=== PATIENT | male | born 1985 | race Caucasian/White ===

== ENCOUNTER 2019-07-23 12:51 | Emergency (ER) | payer SELFPAY ==
[2019-07-23 13:08] VITALS: BP 129/81; PULSE 68; TEMP 98.7; BMI 39.0
[2019-07-23] MEDS ORDERED: ACETAMINOPHEN 325 MG TABLET (FP) PO ONE (13:36)
[2019-07-23] MEDS ORDERED: ACETAMINOPHEN 325 MG TABLET (FP) ONE (13:41)
--- NOTE | 2019-07-23 13:42 | PDOC ---
History of Present Illness - General Chief Complaint: Chest Pain Stated Complaint: HEADACHE/CHEST PAIN Time Seen by Provider: 07/23/19 13:15 History Source: Patient Exam Limitations: No Limitations Past History - Past Medical History Allergies/Adverse Reactions: Allergies Allergy/AdvReac Type Severity Reaction Status Date / Time No Known Allergies Allergy Verified 07/23/19 13:09 Home Medications: Ambulatory Orders NK [No Known Home Medication] 07/23/19 COPD: No - Psycho Social/Smoking Cessation Hx Smoking History: Never smoked Hx Alcohol Use: No Drug/Substance Use Hx: No *Physical Exam - Vital Signs Last Vital Signs Temp Pulse Resp BP Pulse Ox 98.7 F 68 19 129/81 100 07/23/19 13:03 07/23/19 13:03 07/23/19 13:03 07/23/19 13:03 07/23/19 13:03 - Physical Exam General Appearance: No: Apparent Distress HEENT: negative: Nasal Congestion, Rhinorrhea Respiratory/Chest: positive: Lungs Clear, Normal Breath Sounds. negative: Respiratory Distress Cardiovascular: positive: Regular Rhythm, Regular Rate, S1, S2. negative: Murmur Gastrointestinal/Abdominal: positive: Normal Bowel Sounds, Soft. negative: Tender, Distended, Guarding, Rebound Neurologic: positive: cleaner operator II-XII NML intact, Fully Oriented, Alert, Normal Mood/ Affect, Motor Strength 5/5 Heart Score/ECG Review - History History: Slightly suspicious - Electrocardiogram EKG: Non specific repolarization disturbance - Age Age: </= 45 - Risk Factors Risk Factors Heart Score: Yes Hx Hypertension, Yes Hx Diabetes, Yes Hx Obesity Based on the list above the patient has:: >/=3 risk factors or Hx atherosclerotic disease - Troponin Troponin: </= normal limit - Score Heart Score - Total: 3 ED Treatment Course - LABORATORY CBC & Chemistry Diagram: 07/23/19 13:32 07/23/19 13:32 - RADIOLOGY Radiology Studies Ordered: Category Date Time Status CHEST PA & LAT [RAD] Stat Radiology 07/23/19 13:23 Ordered Medical Decision Making - Medical Decision Making 34 y/o M hx of HTN and DM (not on med) presents with R sided MCMILLAN from last night along with pain across chest, which is constant in nature. CP is nonexertional. Denies fever, URI sxs, sob, abd pain, n/v, leg swelling, calf pain, visual/gait changes, numbness/tingling/weakness of extremities. Denies smoking or drug use. States grandmother had PA at age 74 Consider ACS; no risk factors for PE (PERC negative), unlikely PE, aortic dissection EKG: NSR at 67 bpm, TWI lead III, biphasic appearing lead aVF (no prior EKG to review) Plan: labs, CXR 07/23/19 13:37 CXR negative Initial trop negative Patient feeling better HS 3 D/W Dr. Bronson - recommends repeat trop and EKG Will get second set 07/23/19 14:50 Repeat EKG: Sinus sergei at 56 bpm, TWI leads III, aVF Repeat trop pending 07/23/19 15:37 Repeat trop pending Signed out to KRYSTA Huerta 07/23/19 16:03 Discharge - Discharge Information Problems reviewed: Yes Clinical Impression/Diagnosis: Chest pain Qualifiers: Chest pain type: other chest pain Qualified Code(s): R07.89 - Other chest pain - Additional Discharge Information Prescription Drug Monitoring Program (I-STOP) results: I-STOP not reviewed - Follow up/Referral Referrals: ON STAFF,NOT [Primary Care Provider] - 2 Days - Patient Discharge Instructions Patient Printed Discharge Instructions: DI for Chest Pain Additional Instructions: Thank you for choosing [facility]. It was a pleasure taking care of you. Your labs and chest xray were unremarkable Please follow-up with your doctor in 2 days Return to the Emergency Department if your symptoms worsen or persist or have other concerning symptoms. - Post Discharge Activity
[2019-07-23 13:52] LABS: BASO % 0.7 % (0-2.0); EOS % 5.7 % (0-4.5); HEMOGLOBIN 15.3 GM/dL (11.7-16.9); LYMPH % 37.5 % (8-40); MCH 30.2 pg (25.7-33.7); MEAN CELL VOLUME 88.9 fl (80-96); MEAN PLT VOLUME 8.7 fl (7.5-11.1); MONO % 9.7 % (3.8-10.2); NEUT % 46.4 % (42.8-82.8); PLATELET COUNT 274 K/MM3 (134-434); RBC 5.06 M/mm3 (4.00-5.60); RDW 13.2 % (11.9-15.9); WHITE BLOOD COUNT 6.3 K/mm3 (4.0-10.0)
[2019-07-23 14:23] LABS: ALBUMIN 4.1 g/dl (3.4-5.0); ALK PHOS 80 U/L (45-117); ANION GAP 4 MMOL/L (8-16); BILIRUBIN,TOTAL 0.8 mg/dL (0.2-1); BLOOD UREA NITROGEN 11.4 mg/dL (7-18); CALCIUM 9.1 mg/dL (8.5-10.1); CHLORIDE 107 mmol/L (98-107); CO2 27 mmol/L (21-32); CREATININE 0.8 mg/dL (0.55-1.3); GLUCOSE,RANDOM 83 mg/dL (74-106); MAGNESIUM 2.4 mg/dL (1.8-2.4); POTASSIUM 4.7 mmol/L (3.5-5.1); SGOT/AST 41 U/L (15-37); SGPT/ALT 50 U/L (13-61); SODIUM 138 mmol/L (136-145)
--- NOTE | 2019-07-23 16:18 | EKG ---
Test Reason : Blood Pressure : / mmHG Vent. Rate : 067 BPM Atrial Rate : 067 BPM P-R Int : 176 ms QRS Dur : 102 ms QT Int : 364 ms P-R-T Axes : 062 057 -01 degrees QTc Int : 384 ms NORMAL SINUS RHYTHM WITH SINUS ARRHYTHMIA LEFT ATRIAL ENLARGEMENT T WAVE ABNORMALITY, CONSIDER INFERIOR ISCHEMIA ABNORMAL ECG NO PREVIOUS ECGS AVAILABLE Confirmed by MD TORRES MOYSES ([id number]) on 07/23/2019 4:18:00 PM Referred By: Confirmed By:MIKEY TORRES MD
--- NOTE | 2019-07-23 17:12 | PDOC ---
*Physical Exam - Vital Signs Last Vital Signs Temp Pulse Resp BP Pulse Ox 98.7 F 68 19 129/81 100 07/23/19 13:03 07/23/19 13:03 07/23/19 13:03 07/23/19 13:03 07/23/19 13:03 ED Treatment Course - LABORATORY CBC & Chemistry Diagram: 07/23/19 13:32 07/23/19 13:32 - ADDITIONAL ORDERS Additional order review: Laboratory Results 07/23/19 07/23/19 07/23/19 15:38 13:32 13:32 Sodium 138 Potassium 4.7 Chloride 107 Carbon Dioxide 27 Anion Gap 4 L BUN 11.4 Creatinine 0.8 Est GFR (CKD-EPI)AfAm 135.08 Est GFR (CKD-EPI)NonAf 116.55 Random Glucose 83 Calcium 9.1 Magnesium 2.4 Total Bilirubin 0.8 AST 41 H ALT 50 Alkaline Phosphatase 80 Creatine Kinase Cancelled 313 H Creatine Kinase Index 0.4 CK-MB (CK-2) 1.5 Troponin I < 0.02 Cancelled < 0.02 Total Protein 8.0 Albumin 4.1 07/23/19 13:32 RBC 5.06 MCV 88.9 MCHC 34.0 RDW 13.2 MPV 8.7 Neutrophils % 46.4 Lymphocytes % 37.5 Monocytes % 9.7 Eosinophils % 5.7 H Basophils % 0.7 - Medications Given in the ED: ED Medications Discontinued Medications Generic Name Dose Route Start Last Admin Trade Name Freq PRN Reason Stop Dose Admin Acetaminophen 975 mg 07/23/19 13:36 07/23/19 13:46 Tylenol - PO 07/23/19 13:37 975 mg ONCE ONE Administration Medical Decision Making - Medical Decision Making 07/23/19 17:11 Patient was endorsed to me to check repeat troponin and disposal the patient. Patient seen and evaluated he currently has no symptoms he is requesting to be discharged. Troponin is negative I discussed the physical exam findings, ancillary test results and final diagnoses with the patient. I answered all of the patient's questions. The patient was satisfied with the care received and felt comfortable with the discharge plan and treatment plan. The Patient agrees to follow up with the primary care physician within 24-72 hours. Discharge - Discharge Information Problems reviewed: Yes Clinical Impression/Diagnosis: Chest pain Qualifiers: Chest pain type: other chest pain Qualified Code(s): R07.89 - Other chest pain - Follow up/Referral Referrals: ON STAFF,NOT [Primary Care Provider] - 2 Days - Patient Discharge Instructions Patient Printed Discharge Instructions: DI for Chest Pain Additional Instructions: Thank you for choosing [facility]. It was a pleasure taking care of you. Your labs and chest xray were unremarkable Please follow-up with your doctor in 2 days Return to the Emergency Department if your symptoms worsen or persist or have other concerning symptoms. - Post Discharge Activity
--- NOTE | 2019-07-24 14:33 | EKG ---
Test Reason : Blood Pressure : / mmHG Vent. Rate : 056 BPM Atrial Rate : 056 BPM P-R Int : 176 ms QRS Dur : 104 ms QT Int : 388 ms P-R-T Axes : 043 056 -06 degrees QTc Int : 374 ms SINUS BRADYCARDIA WITH SINUS ARRHYTHMIA LEFT ATRIAL ENLARGEMENT T WAVE ABNORMALITY, CONSIDER INFERIOR ISCHEMIA ABNORMAL ECG WHEN COMPARED WITH ECG OF 23-JUL-2019 13:24, NO SIGNIFICANT CHANGE WAS FOUND Confirmed by MD BRIAN, MIKEY ([id number]) on 07/24/2019 2:33:20 PM Referred By: Confirmed By:MIKEY TORRES MD
== END 2019-07-23 18:16 | disposition home or self-care (01) ==
LOC: JER 12:51
DX: R07.89 Other chest pain (principal); I10 Essential (primary) hypertension; E11.9 Type 2 diabetes mellitus without complications
CPT/HCPCS: 36415; 71046-TC-FY; 80053; 82550; 82553; 83735; 84484; 85025; 93005; 93010; 99283-25

== ENCOUNTER 2023-06-26 10:37 | Emergency (ER) | payer OTHER ==
[2023-06-26 11:04] VITALS: BP 149/87; PULSE 73; RESP 16; TEMP 98.8; BMI 39.7
[2023-06-26] MEDS ORDERED: IBUPROFEN 600 MG TABLET (FP) PO ONE ×2 (11:22→12:10)
== END 2023-06-26 13:15 | disposition home or self-care (01) ==
LOC: JERFT 10:37 → JER 10:37 → JERFT 13:15
DX: S60.946A Unspecified superficial injury of right little finger, initial encounter (principal); M79.644 Pain in right finger(s); W19.XXXA Unspecified fall, initial encounter
CPT/HCPCS: 73140-TC-RT-FY; 99283-25